=== PATIENT | female | born 1945 | race Two or more races ===

== ENCOUNTER 2018-09-18 10:39 | Emergency (ER) | payer MEDICARE, MEDICAID ==
[~2018-09-18] VITALS: Ht 157.5 cm; Wt 64.0 kg
[2018-09-18 14:14] VITALS: BP 138/69
== END 2018-09-18 14:28 | disposition home or self-care (01) ==
LOC: ER 10:39
DX: R05 Cough (principal); R09.81 Nasal congestion; F32.9 Major depressive disorder, single episode, unspecified; E11.9 Type 2 diabetes mellitus without complications; E78.00 Pure hypercholesterolemia, unspecified; I10 Essential (primary) hypertension; Z98.51 Tubal ligation status
CPT/HCPCS: 71045; 93005; 99283

== ENCOUNTER 2019-06-13 00:18 | Emergency (ER) | payer MEDICARE, MEDICAID ==
[~2019-06-13] VITALS: Ht 157.5 cm; Wt 76.0 kg
[2019-06-13] MEDS ORDERED: ACETAMINOPHEN 500MG TABLET PO ONE (02:00)
[2019-06-13 02:46] LABS: BASOPHILS % 0.3 % (0.0-2.0); EOSINOPHILS % 0.7 % (0.0-5.0); HEMATOCRIT. 35.6 % (36.0-48.0); HEMOGLOBIN. 11.8 g/dL (12.0-16.0); LYMPHOCYTES % 19.2 % (20.0-50.0); MEAN CORPUSCULAR HEMOGLOBIN 28.5 pg (28.0-32.0); MEAN CORPUSCULAR VOLUME 85.7 fL (81.0-99.0); MEAN PLATELET VOLUME 8.6 fl (7.4-10.4); MONOCYTES % 4.9 % (2.0-8.0); NEUTROPHILS % 74.9 % (40.0-76.0); PLATELET 241 x1000/uL (130-400); PROTHROMBIN TIME 10.3 sec (9.6-11.0); RED BLOOD CELL COUNT 4.15 mill/uL (4.2-5.4); RED CELL DISTRIBUTION WIDTH 14.8 % (11.6-14.6)
[2019-06-13 02:53] LABS: CHLORIDE 98 mEq/L (98-107)
[2019-06-13 03:16] LABS: CLARITY URINE CLEAR (CLEAR); COLOR URINE YELLOW (YELLOW); KETONES URINE NEGATIVE (NEGATIVE); LEUKOCYTE ESTERASE URINE 1+ (NEGATIVE); NITRITE URINE NEGATIVE (NEGATIVE); OCCULT BLOOD URINE NEGATIVE (NEGATIVE); PH URINE 5.5 (4.5-8.0); PROTEIN URINE NEGATIVE (NEGATIVE); SPECIFIC GRAVITY URINE 1.009 (1.005-1.030); UROBILINOGEN URINE 0.2 E.U./dL (0.2-1.0)
[2019-06-13 04:59] VITALS: BP 153/56
== END 2019-06-13 05:15 | disposition home or self-care (01) ==
LOC: ER 00:18
DX: R10.9 Unspecified abdominal pain (principal); E78.00 Pure hypercholesterolemia, unspecified; I10 Essential (primary) hypertension; Z90.710 Acquired absence of both cervix and uterus
CPT/HCPCS: 36415; 74176; 80053; 81003; 85025; 99284